=== PATIENT | female | born 1970 | race Caucasian/White ===

== ENCOUNTER 2020-11-27 17:15 | Emergency (ER) | payer OTHER, SELFPAY ==
[2020-11-27] VITALS (7 sets, daily range): BP systolic 114–163; BP diastolic 71–99; PULSE 63–74; RESP 17–21; TEMP 36.6; O2SAT 97–99; BMI 40.0
--- NOTE | 2020-11-27 17:18 | NURSING ---
NO OLD EKGS
--- NOTE | 2020-11-27 17:55 | EKG12_ITS ---
Test Reason : CP Blood Pressure : / mmHG Vent. Rate : 071 BPM Atrial Rate : 071 BPM P-R Int : 156 ms QRS Dur : 076 ms QT Int : 440 ms P-R-T Axes : 059 040 026 degrees QTc Int : 478 ms Sinus rhythm with occasional Premature ventricular complexes Nonspecific T wave abnormality Abnormal ECG Confirmed by SARAHI VEGA, WHITLEY ([id number]), visual effects editor ALEJANDRO OVALLE ([id number]) on 12/02/2020 11:14:34 AM Referred By: OTIS Confirmed By:SAMANTHA MCCLAIN MD
--- NOTE | 2020-11-27 18:08 | RAD_ITS ---
STUDY: X-RAY CHEST REASON FOR EXAM: Female, 50 years old. CP STARTING YESTERDAY. SOB, NAUSEA. TECHNIQUE: AP portable COMPARISON: None. FINDINGS: The lungs are clear and expanded. There is no demonstrated pleural abnormality. Normal size heart. Normal mediastinum and sully. Normal visualized pulmonary arteries. Normal visualized aortic arch and descending thoracic aorta. Normal visualized thoracic spine. Normal visualized ribs, clavicles, and shoulders. There is no demonstrated abnormality of the visualized soft tissue structures of the upper abdomen. RAD/Chest 1 View (Portable) IMPRESSION: Normal x-ray examination of the chest. Electronically Signed: Duane Ferreira MD at 18:22 EST , Service support ,
[2020-11-27 18:20] LABS: Absolute Lymphocyte Count 1.97 X10^3/uL (0.83-4.51); Absolute Neutrophil Count 4.9 X10^3/uL (2.0-7.7); Basophil# 0.03 X10^3/uL; Basophil% 0.4 % (0-1); Eosinophil# 0.12 X10^3/uL; Eosinophils% 1.5 % (0-5); Hematocrit 39.3 % (37-47); Hemoglobin 12.6 g/dL (12.0-15.0); Lymphocyte # 1.97 X10^3/ul (4.0); Lymphocyte % 25.3 % (19-41); Mean Corp Hgb Conc 32.1 g/dL (32-36); Mean Corpuscular Hgb 26.3 pg (27.0-32.0); Mean Platelet Vol. 11.5 fl (6.2-12.0); Monocyte# 0.73 X10^3/uL; Monocyte% 9.4 % (0-10); NRBC Flagged by Analyzer 0 % (0-5); Neutrophil # 4.91 X10^3/uL (2.7-7.7); Platelet Count 358 K/mm3 (150-450); RBC Distribution Width CV 13.9 % (11.6-14.6); RBC Distribution Width SD 41.6 fl (35.1-43.9); Red Blood Count 4.79 M/mm3 (4.2-5.4); White Blood Count 7.8 K/mm3 (4.4-11.0)
--- NOTE | 2020-11-27 18:22 | CT_ITS ---
STUDY: CTA HEAD AND NECK WITH CONTRAST REASON FOR EXAM: Female, 50 years old. BEYER, NECK PAIN, TINNITUS, CP X 1 DAY, SOB, NAUSEA, INCREASED BP RADIATION DOSAGE (If Supplied By Facility): CTDIvol = ( 34.17 ) mGy, DLP = ( 1605.21 ) mGycm TECHNIQUE: CT angiography was performed with a multi-detector CT scanner. Data acquisition was obtained from the skull base through the vertex following intravenous administration of . MIP images were reconstructed from the axial data set. Post-processing of the angiographic images was performed, with multiplanar reformation and 3D reconstruction. Individualized dose optimization techniques were used for this CT. COMPARISON: No relevant priors. FINDINGS: Normal bilateral petrous carotid arteries. Normal right cavernous carotid artery with a normal supraclinoid bifurcation. Normal left cavernous carotid artery with a normal supraclinoid bifurcation. Normal right A1 segments of the anterior cerebral artery. Normal left A1 segments of the anterior cerebral artery. Anterior communicating artery not visualized consistent with normal variant Normal bilateral A2 segments of the anterior cerebral arteries. Normal right M1 and M2 segments of the middle cerebral arteries, with a normal M1 bifurcation. Normal left M1 and M2 segments of the middle cerebral arteries, with a normal M1 bifurcation. Normal right posterior communicating artery (PCOM). Normal left posterior communicating artery (PCOM). Normal bilateral vertebral arteries. Normal basilar artery with a normal basilar bifurcation. The visualized bilateral superior cerebellar (SCA) arteries are normal. Normal bilateral P1, P2 and visualized P3 segments of the posterior cerebral arteries. There is no demonstrated aneurysm of the [place]. There is no demonstrated abnormality of the visualized brain. AORTIC ARCH: Normal visualized aortic arch. Normal origins of the brachiocephalic, left common carotid, and left subclavian arteries. RIGHT CAROTID ARTERIES: Normal right common carotid artery (CCA). Normal right common carotid bulb. Normal origin of the right internal carotid (ICA) artery without a hemodynamically significant stenosis. Normal visualized cervical portion of the right internal carotid artery. Normal origin of the right external carotid artery (ECA). LEFT CAROTID ARTERIES: Normal left common carotid artery (CCA). Normal left common carotid bulb. Normal origin of the left internal carotid (ICA) artery without a hemodynamically significant stenosis. Normal visualized cervical portion of the left internal carotid artery. Normal origin of the left external carotid artery (ECA). VERTEBRAL ARTERIES: Normal bilateral vertebral arteries. CT/CTA Head AND Neck W/ Contrast IMPRESSION: Normal CTA Head and neck with contrast. Electronically Signed: Duane Ferreira MD at 19:39 EST , Service support ,
[2020-11-27] MEDS: Acetaminophen 500 MG Tablet 1000 MG PO (18:34)
[2020-11-27 18:38] LABS: Anion Gap 7 (5-15); BUN 16 mg/dL (7-18); BUN/Creat Ratio 18.4 RATIO (10-20); Calcium,Total 8.5 mg/dL (8.5-10.1); Chloride 106 mmol/L (98-107); Creatinine, Serum 0.87 mg/dL (0.55-1.02); EST Glomerular Filtration Rate 73 mL/min (>60); Est Glom Filt Rate - Afr Amer 89 mL/min (>60); Estimated Creatinine Clearance 72.42 ml/min; Glucose 91 mg/dL (74-106); Magnesium 2.4 mg/dL (1.6-2.6); Potassium 3.5 mmol/L (3.5-5.1); Sodium Level 140 mmol/L (136-145)
--- NOTE | 2020-11-27 20:58 | ED.DCSUM_ITS ---
History of Present Illness Chief Complaint: Chest Pain Informant: Patient Onset: Yesterday Timing: Intermittent Quality: Heaviness Location: Substernal Narrative: Patient is 50-year-old female with history of obesity, migraines, GERD, restless leg syndrome and obstructive sleep apnea presenting from urgent care for elevated blood pressures and chest discomfort. Patient states she was at work yesterday, she works as a surgical nurse, when she just happened to check her blood pressure. She states it was 190 systolic. She knows she does have been feeling well since yesterday. She states she been feeling mildly lightheaded and had either chest discomfort or reflux. She has had some mild shortness of breath but states is not unusual for her to be short of breath secondary to her AMY and obesity. When she continued to feel unwell she went to urgent care today where her blood pressure was still elevated at 180/108. She was sent to the emergency room via squad at this time. Patient was given nitroglycerin and full dose aspirin via EMS. She had mild improvement of her chest discomfort with the nitro but she developed a worsening headache with this. Patient also notes that the days she has had sharp pains between her shoulder blades as well as pain in her necks and increased tinnitus. She does have chronic tinnitus but it was worse today. Symptoms have since improved since being in the ER. Patient states the discomfort in her neck is worse on the right. Patient denies any cough, fever or respiratory symptoms. She denies any GI symptoms. She does talk at length about how she has extensive history of GERD and is not sure if her chest discomfort was her GERD but because of her hypertension she wanted to make sure that her heart was fine. Patient denies any cardiac history. She does not think she is ever had a stress test. Past Medical History - Allergies and Home Meds Allergies/Adverse Reactions: Allergies Sulfa (Sulfonamide Antibiotics) Adverse Reaction (Verified 11/27/20 18:30) Other Primary Care Physician: Brandi Alex MD [Primary Care Provider] - Past Medical History: - - Obesity, migraines, GERD, restless leg syndrome, obstructive sleep apnea, tinnitus Surgical History: noncontributory Smoking Status: Never smoker Review of Systems General: Denies: Chills, Fever, Sweats Eyes: Denies: Visual changes - bilaterally, Diplopia ENT: Reports: - - Tinnitus. Denies: Rhinorrhea, Sore throat Cardiovascular: Reports: Chest pain. Denies: Palpitations Respiratory: Reports: Dyspnea. Denies: Cough, Dyspnea on exertion Gastrointestinal: Denies: Abdominal pain, Nausea, Vomiting, Diarrhea, Melena, He matochezia Genitourinary: Denies: Dysuria, Hematuria, Frequency Musculoskeletal: Reports: Neck pain. Denies: Back pain, Extremity Pain Skin: Denies: Rash, Wounds Neurological: Denies: Headache, Weakness, Numbness Physical Exam Vital Signs/Narrative: Vital Signs Temp Pulse Resp BP Pulse Ox 11/27/20 20:42 63 19 H 127/82 H 97 11/27/20 20:00 74 17 135/83 H 98 11/27/20 19:00 70 21 H 163/96 H 97 11/27/20 18:23 66 18 146/91 H 99 11/27/20 18:02 99 11/27/20 17:16 97.9 F 71 18 139/99 H 98 Inital Vital Signs reviewed: Yes General: Well nourished, Well developed, No Acute Distress Head: Normocephalic, Atraumatic Eyes: Perrl, EOMI ENT: Moist mucous membranes, No rhinorrhea, TM's clear Neck: Supple, Nontender, - - No bruit appreciated Cardiovascular: Regular rate, Regular rhythm, No murmurs Respiratory: No distress, CTA bilaterally, Chest nontender Abdomen: Soft, Nontender, Nondistended, Normal bowel sounds Back: Nontender, Normal Inspection Extremities: Nontender, No edema. Negative for: Edema Skin: Normal color, No rash Neurological: Alert, Oriented x3, Cranial nerves II-XII grossly intact, Normal Strength, Normal Sensation Psychological: Normal affect, Normal Mood Diagnostic/Tx/Re-eval - Rhythm Strip Rhythm Strip: Sinus Rhythm Rate: 71 Ectopy: None - EKG Initial EKG Interpretation: Sinus Rhythm, - - Normal sinus rhythm at a rate of 71 with PVC present Normal intervals Normal axis Nonspecific T wave flattening in inferior leads. No prior EKG available for comparison - Medical Decision Making Patient presenting with atypical chest discomfort of her over 24 hours. Heart score is 3. She is low risk for ACS. She is initially hypertensive in the emergency room but it resolved without any intervention. Chest x-ray, EKG and troponin are not consistent with ACS or other acute cardiopulmonary process. Delta troponin performed which is negative x2. Did obtain CTA given patient's neck pain and increased tinnitus. This is negative for any acute vascular disease. Patient is a is relatively asymptomatic on reevaluation and comfortabl e with outpatient follow-up. She will follow-up with her PCP to arrange outpatient stress test. Patient is counseled on signs and symptoms requiring return to the emergency room. Patient verbalizes agreement and understand this plan. Patient discharged home in stable and improved condition. ED Disposition - Plan for ED Patient: Disposition: Home or Assisted Living Diagnosis: Chest pain Instructions: ED Chest Pain, Uncertain Cause Referrals: Brandi Alex MD [Primary Care Provider] - Additional Instructions: Please follow-up with your primary care doctor in the next few days to arrange further cardiac evaluation. The exact cause of your pain and discomfort is not clear however your blood pressure is no longer elevated and I do think you are safe for outpatient follow-up.
== END 2020-11-27 21:14 | disposition home or self-care (01) ==
PROVIDERS: Emergency Medicine; Emergency Provider Emergency Medicine; PCP Internal Medicine
DX: R07.9 Chest pain, unspecified (principal); E66.9 Obesity, unspecified; K21.9 Gastro-esophageal reflux disease without esophagitis
CPT/HCPCS: 70496; 70498; 71045; 80048; 83735; 84484; 85025; 93005; 99285; Q9967; A4216

== ENCOUNTER → 2023-09-02 | Outpatient (CLI) | payer OTHER, SELFPAY ==
[2023-09-02 08:47] LABS: Hemoglobin A1c 5.7 % (3.8-5.6)
== END | disposition home or self-care (01) ==
PROVIDERS: PCP Family Medicine; Referring Provider Nurse Practitioner Primary Care; Visit Provider Nurse Practitioner Primary Care
DX: R73.03 Prediabetes (principal)
CPT/HCPCS: 36415; 83036

== ENCOUNTER → 2023-11-05 | Outpatient (CLI) | payer OTHER, SELFPAY ==
[2023-11-05 10:37] LABS: Hemoglobin A1c 5.5 % (3.8-5.6)
== END | disposition home or self-care (01) ==
LOC: LAB 09:25
PROVIDERS: PCP Family Medicine; Referring Provider Nurse Practitioner Primary Care; Visit Provider Nurse Practitioner Primary Care
DX: R73.03 Prediabetes (principal)
CPT/HCPCS: 36415; 83036